=== PATIENT | female | born 1995 | race Caucasian/White ===

== ENCOUNTER 2020-12-19 02:34 | Emergency (ER) | payer SELFPAY ==
[~2020-12-19] VITALS: Ht 170.2 cm; Wt 81.4 kg
[2020-12-19 02:36] VITALS: BP 140/73
[2020-12-19] MEDS ORDERED: birth control tab PO (02:43)
--- NOTE | 2020-12-19 07:22 | REPVR ---
PROCEDURE INFORMATION: Exam: XR Right Foot Exam date and time: 12/19/2020 4:34 AM Age: 25 years old Clinical indication: Other: Fell and twisted ankle TECHNIQUE: Imaging protocol: XR Right foot. Views: 3 or more views. COMPARISON: No relevant prior studies available. FINDINGS: Bones/joints: No fracture. No dislocation. Joint spaces are preserved. Soft tissues: Normal. IMPRESSION: No acute fracture. Electronically signed by: Penelope Caba On 12/19/2020 07:22:37 AM
--- NOTE | 2020-12-19 07:24 | REPVR ---
PROCEDURE INFORMATION: Exam: XR Right Ankle Exam date and time: 12/19/2020 4:34 AM Age: 25 years old Clinical indication: Other: Fell and twisted ankle TECHNIQUE: Imaging protocol: XR Right ankle. Views: 3 or more views. COMPARISON: No relevant prior studies available. FINDINGS: Bones/joints: No fracture. No dislocation. Joint spaces are preserved. Soft tissues: Normal. IMPRESSION: No acute fracture. Electronically signed by: Penelope Caba On 12/19/2020 07:23:42 AM
== END 2020-12-19 05:54 | disposition left against medical advice (07) ==
LOC: M ED 02:34
DX: Z53.21 Procedure and treatment not carried out due to patient leaving prior to being seen by health care provider (principal)

== ENCOUNTER 2021-07-02 15:52 | Emergency (ER) | payer SELFPAY ==
[~2021-07-02] VITALS: Ht 170.2 cm; Wt 80.2 kg
[~2021-07-02 15:52] MED LIST: birth control tab PO
[2021-07-02 15:53] VITALS: BP 136/62
[2021-07-02] MEDS ORDERED: PRENTAB53 PO (16:10)
[2021-07-02 18:13] LABS: BASO % 0.3 % (0.0-1.0); EOS # 0.1 10^3/uL (0.0-0.5); EOS % 0.5 % (0.0-3.0); HEMATOCRIT 42.1 % (36.0-47.0); HEMOGLOBIN 13.9 g/dl (12.0-15.5); LYMPH # 1.3 10^3/uL (1.5-5.0); LYMPH % 13.8 % (24.0-44.0); MEAN CORPUSCULAR HEMOGLOBIN 30.8 pg (27.0-33.0); MEAN CORPUSCULAR VOLUME 93.3 fl (80.0-96.0); MONO # 0.5 10^3/uL (0.0-0.8); MONO % 5.6 % (2.0-8.0); NEUTROPHILS # 7.3 10^3/uL (1.5-8.5); NEUTROPHILS % 79.4 % (36.0-66.0); PLATELET COUNT, AUTOMATED 182 10^3/uL (150-450); RED BLOOD COUNT 4.51 10^6/uL (4.00-5.40); WHITE BLOOD COUNT 9.1 10^3/uL (4.0-10.0)
[2021-07-02 18:45] LABS: ALBUMIN 3.7 GM/DL (3.2-5.2); ALT/SGPT 87 U/L (12-78); BILIRUBIN,DIRECT < 0.1 MG/DL (0.0-0.2); BILIRUBIN,TOTAL 0.2 MG/DL (0.2-1.0); BLOOD UREA NITROGEN 10 MG/DL (7-18); CALCIUM LEVEL 8.9 MG/DL (8.5-10.1); CARBON DIOXIDE LEVEL 25 MEQ/L (21-32); CHLORIDE LEVEL 106 MEQ/L (98-107); GLOMERULAR FILTRATION RATE > 60.0 (>60); GLUCOSE, FASTING 76 MG/DL (70-100); HCG, SERUM QUANTITATIVE 40628 MIU/ML; LIPASE 65 U/L (73-393); POTASSIUM SERUM 4.1 MEQ/L (3.5-5.1); SODIUM LEVEL 139 MEQ/L (136-145); TOTAL PROTEIN 6.6 GM/DL (6.4-8.2)
== END 2021-07-02 19:20 | disposition left against medical advice (07) ==
LOC: M ED 15:52
DX: Z53.29 Procedure and treatment not carried out because of patient's decision for other reasons (principal)

== ENCOUNTER 2022-02-02 20:26 | Outpatient (CLI) | payer SELFPAY ==
[~2022-02-02] VITALS: Ht 170.2 cm; Wt 102.8 kg
[~2022-02-02 20:26] MED LIST changes: +PRENTAB53 PO
[2022-02-02] MEDS ORDERED: HOME MED LIST COMPLETE! XX SCH (21:10)
[2022-02-02 21:11] VITALS: BP 122/58
== END 2022-02-02 21:47 | disposition home or self-care (01) ==
LOC: M LDO 20:26
PROVIDERS: ATTEND Obstetrics & Gynecology
DX: O47.1 False labor at or after 37 completed weeks of gestation (principal); Z3A.38 38 weeks gestation of pregnancy
CPT/HCPCS: 59025; G0378; G0463

== ENCOUNTER 2022-02-06 06:51 | Inpatient (IN) | payer OTHER, SELFPAY ==
[~2022-02-06] VITALS: Ht 170.2 cm; Wt 104.5 kg
[2022-02-06] VITALS (30 sets, daily range): BP systolic 130–184; BP diastolic 58–105
[2022-02-06] MEDS ORDERED: BUTORPHANOL 2 MG/ML INJ (J0595) IV ONE (09:35)
[2022-02-06] MEDS ORDERED: PROMETHAZINE 25MG/ML 1ML VIAL IV ONE (09:35)
[2022-02-06] MEDS ORDERED: HOME MED LIST COMPLETE! XX SCH (10:00)
[2022-02-06] MEDS ORDERED: PENICILLIN G POTASSIUM IV 5 MU in D5W MINI-BAG PLUS 100 ML IV STA (11:42)
[2022-02-06] MEDS ORDERED: TRANEXAMIC ACID INJection 1,000 MG in NS 100 ML IV PRN (11:45)
[2022-02-06] MEDS ORDERED: OXYTOCIN DRIP 30 UNITS in IV 1 EA IV PRN ×4 (11:45)
[2022-02-06] MEDS ORDERED: OXYTOCIN INJ 10 UNITS/ML VIAL (J2590) IV PRN (11:45)
[2022-02-06] MEDS ORDERED: LACTATED RINGER'S 1000 ML IV ONE (11:45)
[2022-02-06] MEDS ORDERED: LR 1,000 ML IV SCH ×2 (11:45→18:00)
[2022-02-06] MEDS ORDERED: METHYLERGONOVINE MALEATE 0.2 MG/ML VIAL (J2210) IM PRN (11:45)
[2022-02-06 12:00] LABS: HEMATOCRIT 42.2 % (36.0-47.0); HEMOGLOBIN 14.4 g/dl (12.0-15.5); MEAN CORPUSCULAR HEMOGLOBIN 30.1 pg (27.0-33.0); MEAN CORPUSCULAR HGB CONC 34.1 g/dl (32.0-36.5); MEAN CORPUSCULAR VOLUME 88.3 fl (80.0-96.0); PLATELET COUNT, AUTOMATED 189 10^3/uL (150-450); RED BLOOD COUNT 4.78 10^6/uL (4.00-5.40); WHITE BLOOD COUNT 10.1 10^3/uL (4.0-10.0)
[2022-02-06] MEDS ORDERED: diphenhydrAMINE 50MG/ML VIAL (J1200) IV PRN (13:15)
[2022-02-06] MEDS ORDERED: ONDANSETRON 4MG 2ML VIAL IV PRN (13:15)
[2022-02-06] MEDS ORDERED: FENTANYL/ROPIVACAINE/NACL BAG 100 ML EPIDURAL SCH (13:15)
[2022-02-06] MEDS ORDERED: ePHEDrine SULFATE 25 MG/5 ML(5MG/ML) SYRINGE IVP PRN (13:15)
[2022-02-06] MEDS ORDERED: NALOXONE INJ 0.4MG/1ML VIAL (J2310 PER 1MG) IV PRN (13:15)
[2022-02-06] MEDS ORDERED: EPIDURAL/PCA KEYS XX PRN (13:15)
[2022-02-06] MEDS ORDERED: LR 500 ML IV PRN (13:15)
[2022-02-06] MEDS ORDERED: PENICILLIN G POTASSIUM IV 2.5 MU in IV 1 EA IV SCH (16:00)
[2022-02-06] MEDS ORDERED: IBUPROFEN 600MG TAB PO PRN (17:40)
[2022-02-06] MEDS ORDERED: METHYLERGONOVINE MALEATE 0.2 MG TAB PO PRN (17:40)
[2022-02-06] MEDS ORDERED: TRANEXAMIC ACID INJection 1,000 MG in NS 100 ML IV ONE (17:40)
[2022-02-06] MEDS ORDERED: ANUSOL HC CREAM 30GM TOP PRN (17:40)
[2022-02-06] MEDS ORDERED: DOCUSATE SODIUM 100MG CAPSULE PO PRN (17:40)
[2022-02-06] MEDS ORDERED: OXYTOCIN INJ 10 UNITS/ML VIAL (J2590) IV ONE (17:40)
[2022-02-06] MEDS ORDERED: MOM 30ML SUSPENSION UDC PO PRN (17:40)
[2022-02-06] MEDS ORDERED: RHOGAM 300 MCG (1500 IU) INJ (J2790) IM SCH (17:40)
[2022-02-06] MEDS ORDERED: DIBUCAINE 1% OINTMENT 30GM TOP PRN (17:40)
[2022-02-06] MEDS ORDERED: OXYTOCIN DRIP 30 UNITS in IV 1 EA IV SCH (17:40)
[2022-02-06 17:44] LABS: CORD GAS ABE V -2.6; CORD GAS HCO3 V 23.3 MEQ/L; CORD GAS O2 SAT V 62.9 %; CORD GAS PCO2 V 44.2 mmHg; CORD GAS PH V 7.339 UNITS; CORD GAS PO2 V 25.6 mmHg; CORD GAS SBC V 21.4 MEQ/L; CORD GAS TCO2 V 24.6 MEQ/L
[2022-02-06 17:46] LABS: CORD GAS ABE A 0.3; CORD GAS HCO3 A 26.7 MEQ/L; CORD GAS O2 SAT A 55.8 %; CORD GAS PCO2 A 50.1 mmHg; CORD GAS PH A 7.344 UNITS; CORD GAS SBC A 23.8 MEQ/L; CORD GAS TCO2 A 28.2 MEQ/L
[2022-02-06] MEDS ORDERED: OXYTOCIN DRIP 30 UNITS in IV 1 EA IV ONE (18:00)
[2022-02-07] MEDS: ACETAMINOPHEN TAB 650MG DOSE (2X325MG) PO PRN ×3 (02:32→18:34)
[2022-02-07 06:28] VITALS: BP 129/66
[2022-02-07 07:46] LABS: HEMATOCRIT 38.2 % (36.0-47.0); HEMOGLOBIN 12.8 g/dl (12.0-15.5); MEAN CORPUSCULAR HEMOGLOBIN 30.4 pg (27.0-33.0); MEAN CORPUSCULAR HGB CONC 33.5 g/dl (32.0-36.5); MEAN CORPUSCULAR VOLUME 90.7 fl (80.0-96.0); PLATELET COUNT, AUTOMATED 161 10^3/uL (150-450); RED BLOOD COUNT 4.21 10^6/uL (4.00-5.40); WHITE BLOOD COUNT 13.3 10^3/uL (4.0-10.0)
[2022-02-07 08:21] LABS: ALT/SGPT 19 U/L (12-78); BILIRUBIN,TOTAL 0.3 MG/DL (0.2-1.0); CREATININE FOR GFR 0.78 MG/DL (0.55-1.30); GLOMERULAR FILTRATION RATE > 60.0 (>60); LDH LACTATE DEHYDROGENASE 305 U/L (84-246); URIC ACID 4.4 MG/DL (2.6-6.0)
[2022-02-07] MEDS: PRENATAL VITAMINS CHEWABLE TABLET PO SCH (09:11)
[2022-02-07 14:07] LABS: TOTAL PROTEIN,RANDOM URINE 22.6 MG/DL (0.0-12.0)
[2022-02-07 18:00] VITALS: BP 116/68
[2022-02-08] MEDS: ACETAMINOPHEN 500 MG TAB PO PRN ×2 (00:56→08:41)
[2022-02-08 06:00] VITALS: BP 111/59
[2022-02-08] MEDS: PRENATAL VITAMINS CHEWABLE TABLET PO SCH (08:40)
[2022-02-08] MEDS ORDERED: IBUP-1022 PO (08:42)
[2022-02-08] MEDS ORDERED: PRENCHW PO (08:42)
[2022-02-08] MEDS ORDERED: COLA100C5 PO (08:42)
[2022-02-08] MEDS ORDERED: MEASLES,MUMPS,RUBELLA VACCINE INJ (MMR-II) (90707) SC.IMMUN ONE (09:00)
== END 2022-02-08 12:15 | disposition home or self-care (01) | DRG 807 ==
LOC: M LDO 06:51 → M LDI 11:40 → M OBS 20:40
PROVIDERS: ADMIT Obstetrics & Gynecology; ATTEND Obstetrics & Gynecology
PROC: 10E0XZZ Delivery of Products of Conception, External Approach (ICD-10-PCS; principal; 2022-02-06)
DX: O99.824 Streptococcus B carrier state complicating childbirth (principal); Z37.0 Single live birth; Z3A.39 39 weeks gestation of pregnancy

== ENCOUNTER 2024-01-31 08:40 | Outpatient (CLI) | payer OTHER ==
[~2024-01-31] VITALS: Ht 170.2 cm; Wt 102.4 kg
[~2024-01-31 08:40] MED LIST changes: +COLA100C5 PO; +IBUP-1022 PO; +PRENCHW PO
[2024-01-31 08:56] VITALS: BP 107/54
[2024-01-31] MEDS: FIORICET TAB PO ONE (09:41)
[2024-01-31 10:13] VITALS: BP 120/58
== END 2024-01-31 12:04 | disposition home or self-care (01) ==
LOC: M LDO 08:40
PROVIDERS: ATTEND Obstetrics & Gynecology
DX: O26.892 Other specified pregnancy related conditions, second trimester (principal); R51.9 Headache, unspecified; Z3A.23 23 weeks gestation of pregnancy
CPT/HCPCS: 59025; G0463

== ENCOUNTER 2024-02-01 22:14 | Outpatient (CLI) | payer OTHER ==
[2024-02-01 22:48] VITALS: BP 144/65
[2024-02-01] MEDS: ACETAMINOPHEN 500 MG TAB PO ONE (23:12)
[2024-02-01 23:59] VITALS: BP 132/60
== END 2024-02-02 00:30 | disposition home or self-care (01) ==
LOC: M LDO 22:14
PROVIDERS: ATTEND Advanced Practice Midwife
DX: O26.892 Other specified pregnancy related conditions, second trimester (principal); R50.9 Fever, unspecified; R51.9 Headache, unspecified; Z3A.23 23 weeks gestation of pregnancy
CPT/HCPCS: 59025; 87486; 87581; 87633; 87798; G0463

== ENCOUNTER 2024-04-26 02:28 | Outpatient (CLI) | payer OTHER ==
[~2024-04-26] VITALS: Ht 170.2 cm; Wt 107.3 kg
[2024-04-26 02:51] VITALS: BP 121/57
[2024-04-26] MEDS: ONDANSETRON 4MG 2ML VIAL IV PRN (03:23)
[2024-04-26] MEDS: LR 1,000 ML IV ONE (03:23)
[2024-04-26 03:27] LABS: HEMATOCRIT 41.1 % (36.0-47.0); MEAN CORPUSCULAR HGB CONC 34.1 g/dl (32.0-36.5); MEAN CORPUSCULAR VOLUME 88.2 fl (80.0-96.0); PLATELET COUNT, AUTOMATED 204 10^3/uL (150-450); RED BLOOD COUNT 4.66 10^6/uL (4.00-5.40)
[2024-04-26 03:51] LABS: ALBUMIN 2.5 G/DL (3.2-5.2); ALKALINE PHOSPHATASE 124 U/L (35-104); ALT/SGPT 27 U/L (7.0-40); AST/SGOT 23 U/L (<34); BILIRUBIN,TOTAL 0.4 MG/DL (0.3-1.2); BLOOD UREA NITROGEN 7 MG/DL (9-23); CARBON DIOXIDE LEVEL 22 MMOL/L (20-31); CHLORIDE LEVEL 105 MMOL/L (98-107); CREATININE FOR GFR 0.64 MG/DL (0.55-1.30); GLOMERULAR FILTRATION RATE > 60.0 (>60); GLUCOSE, FASTING 85 MG/DL (60-100); POTASSIUM SERUM 3.7 MMOL/L (3.5-5.1); SODIUM LEVEL 135 MMOL/L (136-145); TOTAL PROTEIN 6.2 G/DL (5.7-8.2)
[2024-04-26 07:35] VITALS: BP 129/72; O2SAT 100
[2024-04-26] MEDS: CALCIUM CARBONATE 500 MG CHEW U/D PO ONE (08:30)
== END 2024-04-26 08:48 | disposition home or self-care (01) ==
LOC: M LDO 02:28
PROVIDERS: ATTEND Advanced Practice Midwife
DX: O21.8 Other vomiting complicating pregnancy (principal); Z3A.35 35 weeks gestation of pregnancy
CPT/HCPCS: 59025; 80053; 85027; 96360; 96361; 96374; G0463; J2405

== ENCOUNTER 2025-05-21 05:09 | Emergency (ER) | payer OTHER ==
[~2025-05-21] VITALS: Ht 170.2 cm; Wt 91.4 kg
[~2025-05-21 05:09] MED LIST changes: -IBUP-1022 PO; +IBUP600T42 PO
[2025-05-21 05:12] VITALS: BP 138/63; TEMP 96.3; O2SAT 98
== END 2025-05-21 05:39 | disposition left against medical advice (07) ==
LOC: M ED 05:09
DX: Z53.21 Procedure and treatment not carried out due to patient leaving prior to being seen by health care provider (principal)